=== PATIENT | female | born 1995 | race Caucasian/White ===

== ENCOUNTER 2024-09-25 20:16 | Emergency (ER) | payer BC ==
[2024-09-25] MEDS ORDERED: IPRATROPIUM BROM 0.5MG/2.5ML ONE (22:17)
[2024-09-25] MEDS ORDERED: BENZONATATE 100 MG CAP PO ONE (22:17)
[2024-09-25] MEDS ORDERED: predniSONE 20 MG TAB ONE (22:17)
[2024-09-25] MEDS ORDERED: ALBUTEROL 2.5 MG/3 ML NEB SOL ONE (22:17)
[2024-09-25 23:04] LABS: SARS-CoV-2 Antigen Rapid Res Negative (Negative)
--- NOTE | 2024-09-26 00:02 | ER ---
Nurse's Notes [facility] Name: Thelma Singh Age: 29 yrs Sex: Female : 1995 Arrival Date: 09/25/2024 Time: 20:16 Bed 20 Private MD: Diagnosis: Pneumonia, unspecified organism Presentation: 09/25 20:52 Chief complaint: Patient states: DIFFICULTY BREATHING X1 DAY. REPORTS HX OF ASTHMA. HAS dd2 NOT USED RESCUE INHALER OR NEB TREATMENTS PRESCRIBED. Coronavirus screen: At this time, the client does not indicate any symptoms associated with coronavirus-19. Ebola Screen: No symptoms or risks identified at this time. Initial Sepsis Screen: Does the patient meet any 2 criteria? No. Patient's initial sepsis screen is negative. Does the patient have a suspected source of infection? No. Patient's initial sepsis screen is negative. Risk Assessment: Do you want to hurt yourself or someone else? Patient reports no desire to harm self or others. Onset of symptoms was September 24, 2024. 20:52 Method Of Arrival: Ambulatory dd2 20:52 Acuity: JEANINE 3 dd2 Triage Assessment: 20:53 General: Appears in no apparent distress. uncomfortable, Behavior is calm, cooperative, dd2 appropriate for age. Pain: Denies pain. Respiratory: Reports shortness of breath at rest on exertion Airway is patent Respiratory effort is even, unlabored, Respiratory pattern is regular, symmetrical. 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 - Infectious Disease History:: Denies. - Social history:: Smoking status: Patient denies any tobacco usage or history of. Screenin:59 [facility] ED Fall Risk Assessment (Adult) History of falling in the last 3 months, al5 including since admission No falls in past 3 months (0 pts) Confusion or Disorientation No (0 pts) Intoxicated or Sedated No (0 pts) Impaired Gait No (0 pts) Mobility Assist Device Used No (0 pt) Altered Elimination No (0 pt) Score/Fall Risk Level 0 - 2 = Low Risk Oriented to surroundings, Maintained a safe environment, Hourly rounding (assess needs \T\ fall precautionary measures) done. Abuse screen: Denies threats or abuse. Denies injuries from another. Nutritional screening: No deficits noted. Tuberculosis screening: No symptoms or risk factors identified. Assessment: 21:58 General: Appears in no apparent distress. comfortable, Behavior is calm, cooperative. al5 Pain: Denies pain. Neuro: Level of Consciousness is awake, alert, obeys commands, Oriented to person, place, time, situation. Cardiovascular: Capillary refill < 3 seconds Patient's skin is warm and dry. Respiratory: Reports shortness of breath cough that is Airway is patent Respiratory effort is even, unlabored, Respiratory pattern is regular, symmetrical. GI: No signs and/or symptoms were reported involving the gastrointestinal system. : No signs and/or symptoms were reported regarding the genitourinary system. EENT: Reports nasal congestion nasal discharge. Derm: Skin is intact, is healthy with good turgor, Skin is pink, warm \T\ dry. normal. Musculoskeletal: No signs and/or symptoms reported regarding the musculoskeletal system. Vital Signs: 20:52 BP 131 / 90; Pulse 104; Resp 18; Temp 99.4; Pulse Ox 100% on R/A; Weight 97.52 kg; dd2 Height 5 ft. 6 in. ; 22:00 BP 129 / 86; Pulse 100; Resp 18; Pulse Ox 99% on R/A; al5 22:30 BP 128 / 86; Pulse 91; Resp 18; Pulse Ox 100% ; al5 09/26 00:00 BP 140 / 80; Pulse 94; Resp 16; Pulse Ox 100% ; al5 09/25 20:52 Body Mass Index 34.70 (97.52 kg, 167.64 cm) dd2 ED Course: 09/25 20:18 Patient arrived in ED. im 20:27 Aba Rogers PA is PHCP. cp 20:28 Jorje Garcia MD is Attending Physician. cp 20:53 Triage completed. dd2 20:53 Arm band placed on right wrist. dd2 21:58 Kiara Patten, YUNG is Primary Nurse. al5 21:59 Patient has correct armband on for positive identification. Bed in low position. Call al5 light in reach. Side rails up X2. Provided Education on: plan of care. 21:59 No provider procedures requiring assistance completed. al5 22:48 XRAY Chest (1 view) In Process Unspecified. EDMS 23:08 Patient did not have IV access during this emergency room visit. al5 Administered Medications: 22:27 Drug: predniSONE PO 60 mg PO once Route: PO; al5 09/26 00:21 Follow up: Response: No adverse reaction al5 09/25 22:27 Drug: Tessalon Perle PO 200 mg PO once Route: PO; al5 09/26 00:21 Follow up: Response: No adverse reaction al5 09/25 22:27 Drug: Albuterol Inhalation 2.5 mg Inhalation once Route: Inhalation; al5 09/26 00:21 Follow up: Response: No adverse reaction al5 09/25 22:27 Drug: Ipratropium Inhalation Aerosol 0.5 mg Inhalation once Route: Inhalation; al5 09/26 00:21 Follow up: Response: No adverse reaction al5 00:21 Drug: AZITHromycin PO 500 mg PO once Route: PO; al5 00:21 Follow up: Response: No adverse reaction; Medication administered at discharge. al5 Medication: 09/25 22:00 VIS not applicable for this client. al5 Outcome: 09/26 00:02 Discharge ordered by MD. cp 00:20 Discharged to home ambulatory, al5 00:20 Condition: good 00:20 Discharge instructions given to patient, Instructed on discharge instructions, follow up and referral plans. medication usage, Demonstrated understanding of instructions, follow-up care, medications, Prescriptions given X 3, 00:37 Patient left the ED. al5 Signatures: Dispatcher [employer] EDAL Aba Rogers PA PA cp Mendoza, Itzel im Langhorst, Amanda RN RN al5 JAY JAY MELARA RN RN dd2
--- NOTE | 2024-09-26 00:02 | EDPHYS ---
Physician Documentation [facility] Name: Thelma Singh Age: 29 yrs Sex: Female : 1995 Arrival Date: 09/25/2024 Time: 20:16 Bed 20 Private MD: ED Physician Jorje Garcia HPI: 09/25 22:10 This 29 yrs old Female presents to ER via Ambulatory with complaints of Asthma cp Exacerbation. 22:10 The patient presents to the emergency department with wheezing, the patient was cp reported to have productive cough, trouble breathing, sore throat. Onset: The symptoms/episode began/occurred today. Associated signs and symptoms: Pertinent negatives: chest pain, headache, palpitations, vomiting. Severity of symptoms: in the emergency department the symptoms are unchanged. 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 - Infectious Disease History:: Denies. - Social history:: Smoking status: Patient denies any tobacco usage or history of. ROS: 22:15 Eyes: Negative for injury, pain, redness, and discharge, cp 22:15 Constitutional: Negative for fever, poor PO intake, 22:15 ENT: Positive for sore throat, Negative for drainage from ear(s), ear pain, difficulty swallowing, difficulty handling secretions, 22:15 Cardiovascular: Negative for chest pain, 22:15 Respiratory: Positive for cough, shortness of breath, on exertion. wheezing, 22:15 Abdomen/GI: Negative for abdominal pain, vomiting, diarrhea, constipation, 22:15 Neuro: Negative for altered mental status, dizziness, headache, weakness, 22:15 All other systems are negative, Exam: 22:20 Constitutional: The patient appears in no acute distress, alert, awake, non-toxic, well cp developed, well nourished, overweight 22:20 Head/Face: Normocephalic, atraumatic. cp 22:20 Eyes: Periorbital structures: appear normal, Conjunctiva: normal, no exudate, no injection, Sclera: no appreciated abnormality, Lids and lashes: appear normal, bilaterally, 22:20 ENT: External ear(s): are unremarkable, Ear canal(s): are normal, clear, TM's: dullness, bilaterally, Nose: is normal, Mouth: Lips: moist, Oral mucosa: moist, Posterior pharynx: Airway: no evidence of obstruction, patent, 22:20 Neck: ROM/movement: is normal, is supple, without pain, no range of motions limitations, 22:20 Chest/axilla: Inspection: normal, 22:20 Cardiovascular: Rate: tachycardic, Rhythm: regular, Edema: is not appreciated, JVD: is not appreciated, 22:20 Respiratory: the patient does not display signs of respiratory distress, Respirations: normal, no use of accessory muscles, no retractions, labored breathing, is not present, Breath sounds: bronchial sounds, that are mild, are heard diffusely, decreased breath sounds, are not appreciated, stridor, is not appreciated, wheezing: is not appreciated, 22:20 Abdomen/GI: Exam negative for discomfort, distension, guarding, Inspection: abdomen appears normal, Vital Signs: 20:52 BP 131 / 90; Pulse 104; Resp 18; Temp 99.4; Pulse Ox 100% on R/A; Weight 97.52 kg; dd2 Height 5 ft. 6 in. ; 22:00 BP 129 / 86; Pulse 100; Resp 18; Pulse Ox 99% on R/A; al5 22:30 BP 128 / 86; Pulse 91; Resp 18; Pulse Ox 100% ; al5 09/26 00:00 BP 140 / 80; Pulse 94; Resp 16; Pulse Ox 100% ; al5 09/25 20:52 Body Mass Index 34.70 (97.52 kg, 167.64 cm) dd2 MDM: 09/25 20:55 Medical Screening Exam initiated cp 09/26 00:01 Data reviewed: vital signs, nurses notes, lab test result(s), radiologic studies, plain cp films, and as a result, I will discharge patient. 00:01 Differential diagnosis: acute asthma, URI, pneumonia, asthma exacerbation. Antibiotic cp administration: The patient is discharged and will get outpatient antibiotics, Zithromax. I considered the following discharge prescriptions or medication management in the emergency department Medications were administered in the Emergency Department. See MAR. Counseling: I had a detailed discussion with the patient and/or guardian regarding the historical points, exam findings, and any diagnostic results supporting the discharge/admit diagnosis, lab results, radiology results, to return to the emergency department if symptoms worsen or persist or if there are any questions or concerns that arise at home. Response to treatment: the patient's symptoms have mildly improved after treatment, and as a result, I will discharge patient. 09/25 22:10 Order name: SARS RAPID cp 09/25 22:10 Order name: Group A Streptococcus Rapid cp 09/25 23:06 Order name: Throat Culture EDMS 09/25 22:10 Order name: XRAY Chest (1 view) cp Administered Medications: 09/25 22:27 Drug: predniSONE PO 60 mg PO once Route: PO; al5 09/26 00:21 Follow up: Response: No adverse reaction al5 09/25 22:27 Drug: Tessalon Perle PO 200 mg PO once Route: PO; al5 09/26 00:21 Follow up: Response: No adverse reaction al5 09/25 21:27 Drug: Albuterol Inhalation 2.5 mg Inhalation once Route: Inhalation; al5 09/26 00:21 Follow up: Response: No adverse reaction al5 09/25 21:27 Drug: Ipratropium Inhalation Aerosol 0.5 mg Inhalation once Route: Inhalation; al5 09/26 00:21 Follow up: Response: No adverse reaction al5 00:21 Drug: AZITHromycin PO 500 mg PO once Route: PO; al5 00:21 Follow up: Response: No adverse reaction; Medication administered at discharge. al5 Disposition: 20:12 Co-signature as Attending Physician, Jorje Garcia MD I agree with the assessment sp4 and plan of care. I reviewed the patient's care provided by the Advanced Practice Provider and agree with the diagnosis and treatment plan. Disposition Summary: 09/26/24 00:02 Discharge Ordered Notes: Location: Home cp Problem: new cp Symptoms: have improved cp Condition: Stable cp Diagnosis - Pneumonia, unspecified organism cp Followup: cp - With: Private Physician - When: 2 - 3 days - Reason: Worsening of condition Discharge Instructions: - Discharge Summary Sheet cp - Community-Acquired Pneumonia, Adult cp - How to Use a Nebulizer, Adult cp Forms: - Medication Reconciliation Form cp - Antibiotic Education cp - Prescription Opioid Use cp - Patient Portal Instructions cp - Leadership Thank You Letter cp - Work release form al5 Prescriptions: - Bromfed DM 2-30-10 mg/5 mL Oral syrup - administer 10 milliliter ORAL route every 6 to 8 hours as needed for cold cp symptoms; 240 milliliter; Refills: 0, Product Selection Permitted - Albuterol Sulfate 2.5 mg /3 mL (0.083 %) Inhalation Solution for Nebulization - inhale 1 unit NEBULIZATION route every 8 hours As needed; 1 unit; Refills: 0, cp Product Selection Permitted - Zithromax Z-Valdo 250 mg Oral Tablet - take 1 tablet ORAL route as directed for 5 days Day 1 - take two (2) tablets cp one time. Day 2, 3, 4 , 5 take one (1) tablet once daily.; 6 tablet; Refills: 0, Product Selection Permitted Signatures: Dispatcher [employer] EDMS Aba Rogers PA PA cp Jorje Garcia MD MD sp4 Kiara Patten RN RN al5 JAY JAY MELARA RN RN dd2 Corrections: (The following items were deleted from the chart) 09/25 22:11 22:10 Chest Single View+RAD.RAD.BRZ ordered. EDMS EDMS 22: 22:11 SARS-COV-2 Antigen Rapid+I.LAB.BRZ ordered. EDMS EDMS 22: 22:11 Group A Streptococcus Rapid Sc+I.LAB.BRZ ordered. EDMS EDMS
[2024-09-26] MEDS ORDERED: AZITHROMYCIN 250 MG TAB ONE (00:15)
[2024-09-26 00:43] VITALS: TEMP 99.4
[2024-09-26 00:45] VITALS: O2SAT 100
[2024-09-26 00:47] VITALS: BP 140/80
--- NOTE | 2024-09-26 06:09 | RAD REPORT ---
EXAM DESCRIPTION: Chest Single View CLINICAL HISTORY: 29 years Female Cough;SOB COMPARISON: None. FINDINGS: Suboptimal study from patient body habitus. The cardiomediastinal silhouette appears unremarkable. Mild opacity at the lung bases which could be from atelectasis. Clinical correlation recommended to e xclude the possibility of pneumonia or aspiration. No pleural effusions. No pneumothorax. IMPRESSION: Mild opacity at the lung bases which could be from atelectasis. Clinical correlation recommended to e xclude the possibility of pneumonia or aspiration. Electronically signed by: Jimi Madsen MD 09/25/2024 11:34 PM CDT RP Due to temporary technical issues with the [employer] reporting system, reports are being gonzález d by the in-house radiologist without review as a courtesy to ensure prompt reporting the interpreting radiologist is fully responsible for the content of the report. Transcribed Date/Time: 09/26/2024 6:09 AM
== END 2024-09-26 00:37 | disposition home or self-care (01) ==
LOC: ER 20:16
DX: J18.9 Pneumonia, unspecified organism (principal); Z11.52 Encounter for screening for COVID-19
CPT/HCPCS: 87070; 36415; 71045; 99284; 87426; J7512; J7613; J7644